=== PATIENT | female | born 1975 | race Caucasian/White ===

== ENCOUNTER 2018-08-04 09:41 | Emergency (ER) | payer OTHER ==
[2018-08-04] MEDS ORDERED: ONDANSETRON 4 MG/2 ML VIAL ONE (10:35)
[2018-08-04] MEDS ORDERED: MORPHINE 4 MG/ML SYR ONE (10:35)
[2018-08-04] MEDS ORDERED: NA CHLORIDE 0.9% 1,000 ML ONE (10:35)
[2018-08-04 10:48] LABS: Absolute Lymphocytes (CBC) 3.1 K/uL (0.7-4.9); Absolute Monocytes 0.8 K/uL (0.1-1.3); Absolute Neutrophil 6.6 K/uL (1.8-8.0); Basophils % 0.5 % (0-1.3); Eosinophils % 3.8 % (0-4.4); Hematocrit 40.8 % (36.0-45.0); MCH 29.8 pg (27.0-35.0); MCV 85.3 fL (80-100); Monocytes % 7.5 % (3.3-12.3); RBC Red Blood Cell Count 4.78 M/uL (3.86-4.86)
[2018-08-04 11:08] LABS: Albumin 4.2 g/dL (3.4-5.0); Bilirubin Direct 0.2 mg/dL (0-0.2); Bilirubin Total 0.7 mg/dL (0.2-1.0); Potassium 4.2 mmol/L (3.5-5.1); Protein, Total 7.6 g/dL (6.4-8.2)
[2018-08-04 11:13] LABS: Urine Blood NEGATIVE (NEG); Urine Glucose NEGATIVE (NEG); Urine Protein NEGATIVE (NEG); Urine pH 5.5 (5.0-7.0)
--- NOTE | 2018-08-04 11:43 | RAD REPORT ---
EXAM DESCRIPTION: CT - Abdomen Pelvis W Contrast - 08/04/2018 11:29 am CLINICAL HISTORY: Abdominal pain/left-sided abdominal pain with vomiting for several days COMPARISON: none. TECHNIQUE: Computed axial tomography of the abdomen pelvis was obtained. 100 cc Isovue-300 was admin istered intravenously. Oral contrast was not requested which limits evaluation of bowel. All CT scans are performed using dose optimization technique as appropriate and may include automated exposure control or mA/KV adjustment according to patient size. FINDINGS: The liver, spleen, pancreas, adrenal and right kidney appear unremarkable. A 1 millimeter nonobstructing left renal calculus There is no evidence of diverticulitis. The appendix is normal Hysterectomy has been performed. An adnexal mass is not noted. Tiny umbilical hernia is present. IMPRESSION: 1 millimeter nonobstructing left renal calculus
--- NOTE | 2018-08-04 12:16 | ER ---
Nurse's Notes [facility] Name: Coty Bartholomew Age: 43 yrs Sex: Female : 1975 Arrival Date: 08/04/2018 Time: 09:46 Bed 13 Private MD: None, None Diagnosis: Diarrhea, unspecified;Unspecified abdominal pain Presentation: 08/04 09:54 Note Called patient for triage, patient is in the restroom. aj1 10:00 Presenting complaint: Patient states: "On I started having pain on the left aj1 side and vomiting. I thought I was getting the flu because the next day I got fever. The fever broke Wednesday evening. I went back to work on Wednesday, still having the pain and vomiting. On the I went to urgent care, they gave me Zofran and told me if the pain got worse to come to the ER. I'm still throwing up with the Zofran. Now I've got stabbing pain on my left side" Reports LLQ abdominal pain. Transition of care: patient was not received from another setting of care. Onset of symptoms was July 2018. Risk Assessment: Do you want to hurt yourself or someone else? Patient reports no desire to harm self or others. Initial Sepsis Screen: Does the patient meet any 2 criteria? No. Patient's initial sepsis screen is negative. Does the patient have a suspected source of infection? Yes: Acute abdominal pain. Care prior to arrival: None. 10:00 Method Of Arrival: Ambulatory aj1 10:00 Acuity: ADAM 3 aj1 Triage Assessment: 10:07 General: Appears in no apparent distress. uncomfortable, Behavior is calm, cooperative, aj1 appropriate for age. Pain: Complains of pain in left lower quadrant Pain currently is 8 out of 10 on a pain scale. Neuro: Level of Consciousness is awake, alert, obeys commands. Cardiovascular: Patient's skin is warm and dry. Respiratory: Airway is patent Respiratory effort is even, unlabored, Respiratory pattern is regular, symmetrical. GI: Reports lower abdominal pain, nausea, vomiting. 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 - Social history:: Smoking status: Patient/guardian denies using tobacco. - Ebola Screening: : Patient denies travel to an Ebola-affected area in the 21 days before illness onset. Screenin:11 Abuse screen: Denies threats or abuse. Denies injuries from another. Nutritional hj screening: No deficits noted. Tuberculosis screening: No symptoms or risk factors identified. Fall Risk None identified. Assessment: 10:11 General: Appears in no apparent distress. uncomfortable, obese, Behavior is calm, hj cooperative, appropriate for age. Pain: Complains of pain in abdomen and left lower quadrant. Neuro: Level of Consciousness is awake, alert, obeys commands, Oriented to person, place, time, situation, Appropriate for age. Cardiovascular: Capillary refill < 3 seconds Patient's skin is warm and dry. Respiratory: Airway is patent Respiratory effort is even, unlabored, Respiratory pattern is regular, symmetrical. : No signs and/or symptoms were reported regarding the genitourinary system. EENT: No signs and/or symptoms were reported regarding the EENT system. Derm: Musculoskeletal: No signs and/or symptoms reported regarding the musculoskeletal system. 10:12 GI: Bowel sounds present X 4 quads. Abd is soft and non tender. hj 11:08 Reassessment: Patient and/or family updated on plan of care and expected duration. Pain hj level reassessed. Patient is alert, oriented x 3, equal unlabored respirations, skin warm/dry/pink. awaiting results and POC;. 11:16 Reassessment: wheeled to CT;. hj Vital Signs: 10:07 BP 139 / 92; Pulse 78; Resp 18; Temp 97.8; Pulse Ox 100% on R/A; Weight 95.71 kg (R); aj1 Height 5 ft. 1 in. (154.94 cm) (R); Pain 8/10; 11:08 BP 134 / 70; Pulse 71; Resp 18; Pulse Ox 100% on R/A; hj 13:02 BP 132 / 69; Pulse 70; Resp 18; Pulse Ox 100% on R/A; hj 10:07 Body Mass Index 39.87 (95.71 kg, 154.94 cm) aj1 ED Course: 09:46 Patient arrived in ED. sb2 09:46 None, None is Private Physician. sb2 10:04 Triage completed. aj1 10:07 Arm band placed on Patient placed in an exam room. aj1 10:09 Delroy Lambert, LOIDA is Primary Nurse. hj 10:09 Cayetano Hardwick NP is PHCP. pm1 10:09 Chirag Faye MD is Attending Physician. pm1 10:12 Patient has correct armband on for positive identification. Placed in gown. Bed in low hj position. Call light in reach. Side rails up X 1. 10:30 Initial lab(s) drawn, by me, sent to lab. Urine collected: clean catch specimen, clear. hj Inserted saline lock: 22 gauge in right antecubital area, using aseptic technique. Blood collected. 11:29 CT Abd/Pelvis - W/Contrast: IV contrast only In Process Unspecified. EDMS 12:14 Sidra Robertson MD is Referral Physician. pm1 12:20 Referral Physician role handed off by Sidra Robertson MD pm1 12:57 No provider procedures requiring assistance completed. IV discontinued, intact, hj bleeding controlled, No redness/swelling at site. Pressure dressing applied. Administered Medications: 10:25 Drug: NS 0.9% 1000 ml Route: IV; Rate: 1000 ml; Site: right antecubital; hj 12:59 Follow up: IV Status: Completed infusion hj 10:25 Drug: morphine 4 mg Route: IVP; Site: right antecubital; hj 10:57 Follow up: Response: No adverse reaction; Pain is decreased hj 10:25 Drug: Zofran 4 mg Route: IVP; Site: right antecubital; hj 10:58 Follow up: Response: No adverse reaction; Nausea is decreased hj 12:14 Drug: TORadol 30 mg Route: IVP; Site: right antecubital; hj 12:42 Follow up: Response: No adverse reaction hj 12:29 Drug: Phenergan 12.5 mg Route: IVP; Site: right antecubital; 12:54 Follow up: Response: No adverse reaction; Nausea is decreased Outcome: 12:16 Discharge ordered by . pm1 12:58 Discharged to home ambulatory. 12:58 Condition: stable 12:58 Discharge instructions given to patient, Instructed on discharge instructions, follow up and referral plans. medication usage, Demonstrated understanding of instructions, follow-up care, medications, Prescriptions given X 2. 13:00 Patient left the ED. Signatures: Dispatcher [employer] EDMS Priya Lei RN RN aj1 Delroy Lambert RN RN Cayetano Glaser, VENETIAN BLIND WORKER VENETIAN BLIND WORKER pm1 Leah Pride2
--- NOTE | 2018-08-04 12:16 | EDPHYS ---
Physician Documentation [facility] Name: Coty Bartholomew Age: 43 yrs Sex: Female : 1975 Arrival Date: 08/04/2018 Time: 09:46 Bed 13 Private MD: None, None ED Physician Chirag Faye HPI: 08/04 11:00 This 43 yrs old Female presents to ER via Ambulatory with complaints of pm1 Abdominal Pain. 11:00 The patient presents with abdominal pain in the left lower quadrant. Onset: The pm1 symptoms/episode began/occurred 1 week(s) ago. The symptoms do not radiate. Associated signs and symptoms: Pertinent positives: diarrhea, nausea, vomiting, Pertinent negatives: chest pain, shortness of breath. The symptoms are described as sharp. Modifying factors: The symptoms are alleviated by nothing, the symptoms are aggravated by nothing. The patient has not experienced similar symptoms in the past. The patient has been recently seen at an urgent care, for similar complaints, was given a prescription for an antiemetic. 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 - Social history:: Smoking status: Patient/guardian denies using tobacco. - Ebola Screening: : Patient denies travel to an Ebola-affected area in the 21 days before illness onset. ROS: 11:00 Constitutional: Negative for fever, chills, and weight loss, Eyes: Negative for injury, pm1 pain, redness, and discharge, ENT: Negative for injury, pain, and discharge, Neck: Negative for injury, pain, and swelling, Cardiovascular: Negative for chest pain, palpitations, and edema, Respiratory: Negative for shortness of breath, cough, wheezing, and pleuritic chest pain. 11:00 Back: Negative for injury and pain, : Negative for injury, bleeding, discharge, and swelling, MS/Extremity: Negative for injury and deformity, Skin: Negative for injury, rash, and discoloration, Neuro: Negative for headache, weakness, numbness, tingling, and seizure. 11:00 Abdomen/GI: Positive for abdominal pain, nausea, vomiting, diarrhea, of the left lower quadrant. Exam: 11:00 Constitutional: This is a well developed, well nourished patient who is awake, alert, pm1 and in no acute distress. Head/Face: Normocephalic, atraumatic. Eyes: Pupils equal round and reactive to light, extra-ocular motions intact. Lids and lashes normal. Conjunctiva and sclera are non-icteric and not injected. Cornea within normal limits. Periorbital areas with no swelling, redness, or edema. ENT: Nares patent. No nasal discharge, no septal abnormalities noted. Tympanic membranes are normal and external auditory canals are clear. Oropharynx with no redness, swelling, or masses, exudates, or evidence of obstruction, uvula midline. Mucous membranes moist. Neck: Trachea midline, no thyromegaly or masses palpated, and no cervical lymphadenopathy. Supple, full range of motion without nuchal rigidity, or vertebral point tenderness. No Meningismus. Chest/axilla: Normal chest wall appearance and motion. Nontender with no deformity. No lesions are appreciated. Cardiovascular: Regular rate and rhythm with a normal S1 and S2. No gallops, murmurs, or rubs. Normal PMI, no JVD. No pulse deficits. Respiratory: Lungs have equal breath sounds bilaterally, clear to auscultation and percussion. No rales, rhonchi or wheezes noted. No increased work of breathing, no retractions or nasal flaring. Abdomen/GI: Soft, non-tender, with normal bowel sounds. No distension or tympany. No guarding or rebound. No evidence of tenderness throughout. Back: No spinal tenderness. No costovertebral tenderness. Full range of motion. Skin: Warm, dry with normal turgor. Normal color with no rashes, no lesions, and no evidence of cellulitis. MS/ Extremity: Pulses equal, no cyanosis. Neurovascular intact. Full, normal range of motion. 11:00 Neuro: Orientation: is normal, Motor: is normal, Sensation: is normal, no obvious gross deficits, Gait: is steady, at a normal pace, without difficulty. Vital Signs: 10:07 BP 139 / 92; Pulse 78; Resp 18; Temp 97.8; Pulse Ox 100% on R/A; Weight 95.71 kg (R); aj1 Height 5 ft. 1 in. (154.94 cm) (R); Pain 8/10; 11:08 BP 134 / 70; Pulse 71; Resp 18; Pulse Ox 100% on R/A; hj 13:02 BP 132 / 69; Pulse 70; Resp 18; Pulse Ox 100% on R/A; hj 10:07 Body Mass Index 39.87 (95.71 kg, 154.94 cm) aj1 MDM: 10:14 Patient medically screened. pm1 12:12 Data reviewed: vital signs. Data interpreted: Pulse oximetry: on room air is 100 %. pm1 Interpretation: normal. Counseling: I had a detailed discussion with the patient and/or guardian regarding: the historical points, exam findings, and any diagnostic results supporting the discharge/admit diagnosis, lab results, radiology results, the need for outpatient follow up, to return to the emergency department if symptoms worsen or persist or if there are any questions or concerns that arise at home. 08/04 10:15 Order name: Basic Metabolic Panel; Complete Time: 11:23 pm1 08/04 10:15 Order name: CBC with Diff; Complete Time: 10:52 pm1 08/04 10:15 Order name: Creatinine for Radiology; Complete Time: 11:23 pm1 08/04 10:15 Order name: Hepatic Function; Complete Time: 11:23 pm1 08/04 10:15 Order name: Lipase; Complete Time: 11:23 pm1 08/04 11:02 Order name: Urine Dipstick--Ancillary (enter results); Complete Time: 11:23 eb 08/04 10:15 Order name: IV Saline Lock; Complete Time: 10:39 pm1 08/04 10:20 Order name: CT Abd/Pelvis - W/Contrast: IV contrast only; Complete Time: 12:09 pm1 08/04 11:02 Order name: Urine --Ancillary (enter results); Complete Time: 11:23 eb 08/04 10:15 Order name: Labs collected and sent; Complete Time: 10:40 pm1 08/04 10:15 Order name: Urine Test (obtain specimen); Complete Time: 10:57 pm1 11 10:15 Order name: Urine Dipstick-Ancillary (obtain specimen); Complete Time: 10:57 pm1 Administered Medications: 10:25 Drug: NS 0.9% 1000 ml Route: IV; Rate: 1000 ml; Site: right antecubital; hj 12:59 Follow up: IV Status: Completed infusion hj 10:25 Drug: morphine 4 mg Route: IVP; Site: right antecubital; hj 10:57 Follow up: Response: No adverse reaction; Pain is decreased hj 10:25 Drug: Zofran 4 mg Route: IVP; Site: right antecubital; hj 10:58 Follow up: Response: No adverse reaction; Nausea is decreased hj 12:14 Drug: TORadol 30 mg Route: IVP; Site: right antecubital; hj 12:42 Follow up: Response: No adverse reaction hj 12:29 Drug: Phenergan 12.5 mg Route: IVP; Site: right antecubital; hj 12:54 Follow up: Response: No adverse reaction; Nausea is decreased hj Disposition: 16:24 Co-signature as Attending Physician, Chirag Faye MD I agree with the assessment and kdr plan of care. Disposition: 08/04/18 12:16 Discharged to Home. Impression: Diarrhea, unspecified, Unspecified abdominal pain. - Condition is Stable. - Discharge Instructions: Abdominal Pain, Adult, Food Choices to Help Relieve Diarrhea, Adult, Diarrhea, Adult. - Prescriptions for Bentyl 20 mg Oral Tablet - take 1 tablet by ORAL route every 6 hours As needed; 20 tablet. promethazine 25 mg Oral Tablet - take 1 tablet by ORAL route every 6 hours As needed; 20 tablet. - Medication Reconciliation Form, Thank You Letter, Antibiotic Education form. - Follow up: Emergency Department; When: As needed; Reason: Worsening of condition. Follow up: Private Physician; When: 2 - 3 days; Reason: Recheck today's complaints, Continuance of care, Re-evaluation by your physician. Follow up: Sidra Robertson MD; When: 2 - 3 days; Reason: Recheck today's complaints, Continuance of care, Re-evaluation by your physician. - Problem is new. - Symptoms have improved. Signatures: Dispatcher [employer] EDMS Priya Lei RN RN aj1 Chirag Faye MD MD kdr Joaquin, Henry, RN RN hj Cayetano Hardwick, ANN SURFACE BOSS pm1 Corrections: (The following items were deleted from the chart) 12:18 12:16 08/04/2018 12:16 Discharged to Home. Impression: Left ureteral stone. Condition pm1 is Stable. Forms are Medication Reconciliation Form, Thank You Letter, Antibiotic Education, Prescription Opioid Use. Follow up: Emergency Department; When: As needed; Reason: Worsening of condition. Follow up: Private Physician; When: 2 - 3 days; Reason: Recheck today's complaints, Continuance of care, Re-evaluation by your physician. Follow up: Sidra Robertson; When: 2 - 3 days; Reason: Recheck today's complaints, Continuance of care, Re-evaluation by your physician. Problem is new. Symptoms have improved. pm1 12:20 12:18 08/04/2018 12:16 Discharged to Home. Impression: Diarrhea, unspecified; pm1 Unspecified abdominal pain. Condition is Stable. Discharge Instructions: Food Choices to Help Relieve Diarrhea, Adult, Diarrhea, Adult, Renal Colic. Forms are Medication Reconciliation Form, Thank You Letter, Antibiotic Education, Prescription Opioid Use. Follow up: Emergency Department; When: As needed; Reason: Worsening of condition. Follow up: Private Physician; When: 2 - 3 days; Reason: Recheck today's complaints, Continuance of care, Re-evaluation by your physician. Follow up: Sidra Robertson; When: 2 - 3 days; Reason: Recheck today's complaints, Continuance of care, Re-evaluation by your physician. Problem is new. Symptoms have improved. pm1 13:00 12:20 08/04/2018 12:16 Discharged to Home. Impression: Diarrhea, unspecified; hj Unspecified abdominal pain. Condition is Stable. Discharge Instructions: Food Choices to Help Relieve Diarrhea, Adult, Diarrhea, Adult, Abdominal Pain, Adult. Prescriptions for Bentyl 20 mg Oral Tablet - take 1 tablet by ORAL route every 6 hours As needed; 20 tablet, Zofran 4 mg Oral Tablet - take 1 tablet by ORAL route every 12 hours As needed; 20 tablet. and Forms are Medication Reconciliation Form, Thank You Letter, Antibiotic Education. Follow up: Emergency Department; When: As needed; Reason: Worsening of condition. Follow up: Private Physician; When: 2 - 3 days; Reason: Recheck today's complaints, Continuance of care, Re-evaluation by your physician. Problem is new. Symptoms have improved. pm1
[2018-08-04] MEDS ORDERED: KETOROLAC 30 MG/ML INJ ONE (12:22)
[2018-08-04] MEDS ORDERED: PROMETHAZINE 25 MG/ML VIAL ONE (12:53)
== END 2018-08-04 13:00 | disposition home or self-care (01) ==
LOC: ER 09:41
DX: R19.7 Diarrhea, unspecified (principal); I10 Essential (primary) hypertension; E11.9 Type 2 diabetes mellitus without complications; E78.5 Hyperlipidemia, unspecified; Z88.8 Allergy status to other drugs, medicaments and biological substances
CPT/HCPCS: 36415; 74177; 80048; 80076; 81003; 81025; 83690; 85025; 96361; 96374; 96375; 99284; J2405; J2550; J7030; Q9967

== ENCOUNTER 2018-08-11 09:30 | Emergency (ER) | payer OTHER ==
[2018-08-11] MEDS ORDERED: ONDANSETRON 4 MG/2 ML VIAL ONE (10:44)
[2018-08-11] MEDS ORDERED: MORPHINE 4 MG/ML SYR ONE (10:44)
--- NOTE | 2018-08-11 10:57 | RAD REPORT ---
EXAM DESCRIPTION: CT - Abdomen Pelvis W Contrast - 08/11/2018 10:43 am CLINICAL HISTORY: Abdominal pain/left lower quadrant pain for 2 weeks. Vomiting. COMPARISON: August 04, 2018 TECHNIQUE: Computed axial tomography of the abdomen pelvis was obtained. 100 cc Isovue-300 was admin istered intravenously. Oral contrast was not requested which limits evaluation of bowel. All CT scans are performed using dose optimization technique as appropriate and may include automated exposure control or mA/KV adjustment according to patient size. FINDINGS: Mild fatty infiltration liver. Spleen, pancreas, adrenal and right kidney appear unremarkable. 1 millimeter nonobstructing left barbi l calculus There is no evidence of diverticulitis. The appendix is normal. Hysterectomy has been performed Tiny umbilical hernia IMPRESSION: No acute abnormality is displayed.
[2018-08-11 11:06] LABS: Absolute Lymphocytes (CBC) 2.1 K/uL (0.7-4.9); Absolute Monocytes 0.6 K/uL (0.1-1.3); Absolute Neutrophil 5.8 K/uL (1.8-8.0); Basophils % 0.4 % (0-1.3); Eosinophils % 3.7 % (0-4.4); Hematocrit 34.7 % (36.0-45.0); Lymphocytes % 23.8 % (15.3-44.8); MCH 30.1 pg (27.0-35.0); MPV 7.6 fL (7.6-11.3); Monocytes % 6.7 % (3.3-12.3); RBC Red Blood Cell Count 4.04 M/uL (3.86-4.86)
[2018-08-11 11:23] LABS: Albumin 3.6 g/dL (3.4-5.0); Bilirubin Direct 0.1 mg/dL (0-0.2); Bilirubin Total 0.4 mg/dL (0.2-1.0); Potassium 4.2 mmol/L (3.5-5.1); Protein, Total 6.4 g/dL (6.4-8.2)
--- NOTE | 2018-08-11 11:52 | EDPHYS ---
Physician Documentation [facility] Name: Coty Bartholomew Age: 43 yrs Sex: Female : 1975 Arrival Date: 08/11/2018 Time: 09:39 Bed 8 Private MD: Sasha Herman K ED Physician Elias Farah HPI: 08/11 10:34 This 43 yrs old Female presents to ER via Ambulatory with complaints of jmm Black/Tarry Stools. 10:34 The patient presents with abdominal pain in the left upper quadrant, in the left lower jmm quadrant. Onset: The symptoms/episode began/occurred gradually, 2 week(s) ago. Associated signs and symptoms: Pertinent positives:. This is a 43 year old female with a history of DM, that presents to the ED with left sided abdominal pain beginning 2 weeks ago. Patient states she was diagnosed with diverticulitis 2 weeks ago and is currently taking cipro, cefuroxime, and flagyl with dark tarry stools. . COUNSELING DIRECTOR: 10:22 LMP N/A - Hysterectomy iw Historical: - Allergies: 10:22 Advair Diskus; iw - Home Meds: 10:22 Atenolol Oral [Active]; Cyclobenzaprine Oral [Active]; Enalapril Oral [Active]; iw Metformin Oral [Active]; Naproxen Oral [Active]; Prozac Oral [Active]; Ranitidine Oral [Active]; - PMHx: 10:22 Diabetes - NIDDM; Diverticulitis; Endometrosis; Hyperlipidemia; Hypertension; iw - PSHx: 10:22 Hysterectomy; iw - Immunization history:: Adult Immunizations not up to date. - Social history:: Smoking status: Patient/guardian denies using tobacco. - Ebola Screening: : Patient negative for fever greater than or equal to 101.5 degrees Fahrenheit, and additional compatible Ebola Virus Disease symptoms Patient denies exposure to infectious person Patient denies travel to an Ebola-affected area in the 21 days before illness onset No symptoms or risks identified at this time. ROS: 10:34 Constitutional: Negative for fever, chills, and weight loss, Cardiovascular: Negative jmm for chest pain, palpitations, and edema, Respiratory: Negative for shortness of breath, cough, wheezing, and pleuritic chest pain. 10:34 Back: Negative for injury and pain, MS/Extremity: Negative for injury and deformity, Skin: Negative for injury, rash, and discoloration, Neuro: Negative for headache, weakness, numbness, tingling, and seizure, Psych: Negative for depression, anxiety, suicide ideation, homicidal ideation, and hallucinations. 10:34 Abdomen/GI: Positive for abdominal pain. 10:34 All other systems are negative. Exam: 10:34 Head/Face: atraumatic. Eyes: EOMI, no conjunctival erythema appreciated Chest/axilla: jmm Normal chest wall appearance and motion. Cardiovascular: Regular rate and rhythm. No edema appreciated Respiratory: Normal respirations, no respiratory distress appreciated 10:34 Back: Normal ROM Skin: General appearance color normal MS/ Extremity: Moves all extremities, no obvious deformities appreciated, no edema noted to the lower extremities Neuro: Awake and alert, normal gait 10:34 Constitutional: The patient appears alert, awake. 10:34 Constitutional: The patient appears uncomfortable. 10:34 Abdomen/GI: Inspection: abdomen appears normal, Bowel sounds: normal, Palpation: soft, moderate abdominal tenderness, in the left upper quadrant and left lower quadrant. Vital Signs: 10:22 BP 152 / 80; Pulse 94; Resp 16; Temp 98.2; Pulse Ox 100% on R/A; Weight 95.25 kg; iw Height 5 ft. 1 in. (154.94 cm); Pain 8/10; 11:00 BP 141 / 84; Pulse 92; Resp 16 S; Pulse Ox 100% on R/A; aa5 11:15 BP 110 / 58; Pulse 90; Resp 16 S; Pulse Ox 100% on R/A; Pain 6/10; aa5 12:30 BP 109 / 66; Pulse 89; Resp 16 S; Pulse Ox 100% on R/A; jl7 10:22 Body Mass Index 39.68 (95.25 kg, 154.94 cm) iw MDM: 10:18 Patient medically screened. [facility] 10:34 Data reviewed: vital signs, nurses notes. [facility] 11:49 Data reviewed: lab test result(s), radiologic studies, CT scan. Counseling: I had a [facility] detailed discussion with the patient and/or guardian regarding: the historical points, exam findings, and any diagnostic results supporting the discharge/admit diagnosis, lab results, radiology results, the need for outpatient follow up, to return to the emergency department if symptoms worsen or persist or if there are any questions or concerns that arise at home. ED course: CT imaging negative for acute findings. I do not suspect an acute intraabdominal process. Patient encouraged to continue abx and PPI. Patient advised to follow up with her GI and otherwise given strict return precautions. Patient understood and agrees with the plan of care. . 08/11 10:24 Order name: Basic Metabolic Panel; Complete Time: 11:40 [facility] 08/11 10:24 Order name: CBC with Diff; Complete Time: 11:17 [facility] 08/11 11:17 Interpretation: HGB 12.2. [facility] 08/11 10:24 Order name: Creatinine for Radiology; Complete Time: 11:40 [facility] 08/11 10:24 Order name: Hepatic Function; Complete Time: :40 [facility] 08/11 10:24 Order name: Lipase; Complete Time: 11:40 [facility] 08/11 10:24 Order name: Type And Screen; Complete Time: 11:51 [facility] 08/11 10:24 Order name: IV Saline Lock; Complete Time: 10:59 [facility] 08/11 10:24 Order name: Labs collected and sent; Complete Time: 10:59 [facility] 08/11 10:24 Order name: CT Abd/Pelvis - W/Contrast; Complete Time: 11:17 [facility] 08/11 11:58 Order name: ABO/RH no charge; Complete Time: 11:59 EDMS Administered Medications: 11:00 Drug: morphine 4 mg Route: IVP; Site: right antecubital; aa5 11:05 Follow up: Response: No adverse reaction aa5 11:00 Drug: Zofran 4 mg Route: IVP; Site: right antecubital; aa5 11:05 Follow up: Response: No adverse reaction aa5 11:58 Drug: fentaNYL (PF) 50 mcg Route: IVP; Site: right antecubital; aa5 12:04 Follow up: Response: No adverse reaction aa5 Disposition: 17:24 Co-signature as Attending Physician, Elias Farah MD. rn Disposition: 08/11/18 11:51 Discharged to Home. Impression: Other abdominal pain. - Condition is Stable. - Discharge Instructions: Abdominal Pain, Adult. - Medication Reconciliation Form, Thank You Letter, Antibiotic Education, Prescription Opioid Use form. - Follow up: Private Physician; When: 1 - 2 days; Reason: Recheck today's complaints, Continuance of care, Re-evaluation by your physician. Signatures: Dispatcher [employer] Karthik Cesar PA PA jmm Williams, Irene, RN Elias Tony MD MD rn Calderon, Audri, RN RN aa5 Sydney Hinton RN RN jl7 Corrections: (The following items were deleted from the chart) 12:36 11:51 08/11/2018 11:51 Discharged to Home. Impression: Other abdominal pain. Condition jl7 is Stable. Forms are Medication Reconciliation Form, Thank You Letter, Antibiotic Education, Prescription Opioid Use. Follow up: Private Physician; When: 1 - 2 days; Reason: Recheck today's complaints, Continuance of care, Re-evaluation by your physician. keya
--- NOTE | 2018-08-11 11:52 | ER ---
Nurse's Notes [facility] Name: Coty Bartholomew Age: 43 yrs Sex: Female : 1975 Arrival Date: 08/11/2018 Time: 09:39 Bed 8 Private MD: Sasha Herman K Diagnosis: Other abdominal pain Presentation: 08/11 10:16 Presenting complaint: Patient states: LLQ pain X 2 weeks, was sen here on for same iw symptoms and vomiting, pt was placed on antibiotics and hsa had diarrhea, this morning had 2 episodes of "black tarry stool" this morning. Transition of care: patient was not received from another setting of care. Onset of symptoms was August 11, 2018. Risk Assessment: Do you want to hurt yourself or someone else? Patient reports no desire to harm self or others. Initial Sepsis Screen: Does the patient meet any 2 criteria? No. Patient's initial sepsis screen is negative. Does the patient have a suspected source of infection? No. Patient's initial sepsis screen is negative. Care prior to arrival: None. 10:16 Method Of Arrival: Ambulatory iw 10:16 Acuity: ADAM 3 iw CLINICAL SAFETY SPECIALIST: 10:22 LMP N/A - Hysterectomy iw Historical: - Allergies: 10:22 Advair Diskus; iw - Home Meds: 10:22 Atenolol Oral [Active]; Cyclobenzaprine Oral [Active]; Enalapril Oral [Active]; iw Metformin Oral [Active]; Naproxen Oral [Active]; Prozac Oral [Active]; Ranitidine Oral [Active]; - PMHx: 10:22 Diabetes - NIDDM; Diverticulitis; Endometrosis; Hyperlipidemia; Hypertension; iw - PSHx: 10:22 Hysterectomy; iw - Immunization history:: Adult Immunizations not up to date. - Social history:: Smoking status: Patient/guardian denies using tobacco. - Ebola Screening: : Patient negative for fever greater than or equal to 101.5 degrees Fahrenheit, and additional compatible Ebola Virus Disease symptoms Patient denies exposure to infectious person Patient denies travel to an Ebola-affected area in the 21 days before illness onset No symptoms or risks identified at this time. Screenin:30 Abuse screen: Denies threats or abuse. Nutritional screening: No deficits noted. aa5 Tuberculosis screening: No symptoms or risk factors identified. Fall Risk None identified. Assessment: 10:30 General: Appears comfortable, Behavior is calm, cooperative. Pain: Complains of pain in aa5 left lower quadrant Pain radiates to lumbar area, left low back and right low back Pain currently is 8 out of 10 on a pain scale. Quality of pain is described as sharp, shooting, Pain began 2 weeks ago Is continuous. Neuro: Level of Consciousness is awake, alert, obeys commands, Oriented to person, place, time, situation. Cardiovascular: Heart tones S1 S2 present Rhythm is regular. Respiratory: Airway is patent Respiratory effort is even, unlabored, Respiratory pattern is regular, symmetrical, Breath sounds are clear bilaterally. GI: Abdomen is obese, Bowel sounds present X 4 quads. Abd is soft and non tender X 4 quads. Reports diarrhea, nausea, 2 "black tarry" stools this morning Patient currently denies vomiting. : No signs and/or symptoms were reported regarding the genitourinary system. EENT: No signs and/or symptoms were reported regarding the EENT system. Derm: Skin is pink, warm \\T\\ dry. Musculoskeletal: Range of motion: intact in all extremities. 11:15 Reassessment: Patient and/or family updated on plan of care and expected duration. Pain aa5 level reassessed. Patient is alert, oriented x 3, equal unlabored respirations, skin warm/dry/pink. Patient states feeling better. Pain: Pain currently is 6 out of 10 on a pain scale. 12:10 Reassessment: Patient is alert, oriented x 3, equal unlabored respirations, skin aa5 warm/dry/pink. Patient states feeling better. Vital Signs: 10:22 BP 152 / 80; Pulse 94; Resp 16; Temp 98.2; Pulse Ox 100% on R/A; Weight 95.25 kg; iw Height 5 ft. 1 in. (154.94 cm); Pain 8/10; 11:00 BP 141 / 84; Pulse 92; Resp 16 S; Pulse Ox 100% on R/A; aa5 11:15 BP 110 / 58; Pulse 90; Resp 16 S; Pulse Ox 100% on R/A; Pain 6/10; aa5 12:30 BP 109 / 66; Pulse 89; Resp 16 S; Pulse Ox 100% on R/A; jl7 10:22 Body Mass Index 39.68 (95.25 kg, 154.94 cm) ED Course: 09:39 Patient arrived in ED. mr 09:39 Sasha Herman MD is Private Physician. mr 10:07 Karthik Hendricks PA [facility] 10:07 Elias Farah MD is Attending Physician. [facility] 10:12 Nubia Cochran, RN is Primary Nurse. aa5 10:20 Triage completed. iw 10:23 Arm band placed on. iw 10:30 Patient has correct armband on for positive identification. Placed in gown. Bed in low aa5 position. Call light in reach. Side rails up X2. 10:43 CT Abd/Pelvis - W/Contrast In Process Unspecified. EDMS 10:43 CT completed. Patient tolerated procedure well. Patient moved to CT via wheelchair. Patient moved back from CT. 10:45 Inserted saline lock: 22 gauge in right antecubital area, using aseptic technique. per 3 video tape duplicator. 10:56 Initial lab(s) drawn, by co, sent to lab. T\\T\\S collected, blood band applied to patient. 3 12:36 No provider procedures requiring assistance completed. IV discontinued, intact, jl7 bleeding controlled, No redness/swelling at site. Pressure dressing applied. Administered Medications: 11:00 Drug: morphine 4 mg Route: IVP; Site: right antecubital; aa5 11:05 Follow up: Response: No adverse reaction aa5 11:00 Drug: Zofran 4 mg Route: IVP; Site: right antecubital; aa5 11:05 Follow up: Response: No adverse reaction aa5 11:58 Drug: fentaNYL (PF) 50 mcg Route: IVP; Site: right antecubital; aa5 12:04 Follow up: Response: No adverse reaction aa5 Outcome: 11:51 Discharge ordered by MD. [facility] 12:35 Discharged to home ambulatory. jl7 12:35 Condition: stable 12:35 Discharge instructions given to patient, Instructed on discharge instructions, follow up and referral plans. Demonstrated understanding of instructions, follow-up care. 12:36 Patient left the ED. jl7 Signatures: Dispatcher [employer] EDMS Karthik Hendricks PA PA jmm Rivera, Mary mr HowardPrema Mercy Gusman RN RN iw Nubia Cochran RN RN aa5 Sydney Hinton RN RN jl7 [facility] Corrections: (The following items were deleted from the chart) 10:59 10:45 Inserted saline lock: 22 gauge in right antecubital area, using aseptic dh3 technique. per Assessment Expert 3
[2018-08-11] MEDS ORDERED: FENTANYL CITR 100 MCG/2 ML ONE (12:12)
== END 2018-08-11 12:36 | disposition home or self-care (01) ==
LOC: ER 09:30
DX: R10.9 Unspecified abdominal pain (principal); I10 Essential (primary) hypertension; E78.5 Hyperlipidemia, unspecified; E11.9 Type 2 diabetes mellitus without complications; Z88.8 Allergy status to other drugs, medicaments and biological substances
CPT/HCPCS: 36415; 74177; 80048; 80076; 83690; 85025; 86850; 86900; 86901; 96374; 96375; 99284; J2405; J3010; Q9967

== ENCOUNTER → 2018-09-09 | Day surgery (SDC) | payer OTHER ==
[2018-09-08 13:53] LABS: Absolute Lymphocytes (CBC) 2.4 K/uL (0.7-4.9); Absolute Monocytes 0.6 K/uL (0.1-1.3); Absolute Neutrophil 4.4 K/uL (1.8-8.0); Basophils % 0.9 % (0-1.3); Eosinophils % 4.6 % (0-4.4); Hematocrit 40.7 % (36.0-45.0); Lymphocytes % 30.5 % (15.3-44.8); MPV 7.8 fL (7.6-11.3); Monocytes % 8.1 % (3.3-12.3)
[2018-09-08 14:03] LABS: Potassium 5.2 mmol/L (3.5-5.1)
--- NOTE | 2018-09-08 14:03 | RAD REPORT ---
EXAM DESCRIPTION: RAD - Chest Pa And Lat (2 Views) - 09/08/2018 1:56 pm CLINICAL HISTORY: PRE SURGERY Chest pain. COMPARISON: No comparisons FINDINGS: The lungs are clear. The heart is normal in size. No displaced fractures. IMPRESSION: No acute or concerning finding suspected.
[~2018-09-09] MED LIST: CEFOXITIN/SWI 1gm 1 GM/10 ML SYR ONE; DEXAMETHASONE 10 MG/ML VIAL ONE; FENTANYL CITR 100 MCG/2 ML ONE; GLYCOPYRROLATE 0.2 MG/ML SYR ONE; HYDROCODONE/APAP 7.5/325 MG TAB ONE; HYDROCODONE/APAP 7.5/325 MG TAB PO ONE; HYDROMORPHONE HCL 1 MG/ML INJ ONE; LIDOCAINE 2% MPF 5 ML VIAL ONE; MIDAZOLAM HCL 2 MG/2 ML INJ ONE; NA CHLORIDE 0.9% 1,000 ML ONE; NEOSTIGMINE 1 MG/ML -5 ML SYRINGE ONE; ONDANSETRON 4 MG/2 ML VIAL ONE; PROPOFOL 200 MG/20 ML VIAL IV ONE; ROCURONIUM 50 MG/5 ML VIAL IV ONE
--- NOTE | 2018-09-09 09:26 | EKG ---
Test Date: 2018-09-08 Test Time: 13:38:41 [place] Supervisor: TORIBIO MEASUREMENT RESULTS: Intervals: Rate: 60 SC: 142 QRSD: 82 QT: 408 QTc: 408 [place]: P: 26 SC: 142 QRS: 2 T: 28 INTERPRETIVE STATEMENTS: Normal sinus rhythm Cannot rule out Anterior infarct, age undetermined Abnormal ECG No previous ECG available for comparison Electronically Signed On 09-09-18 09:25:51 AUTOMOTIVE PARTS SPECIALIST by Dennis Keene
[2018-09-09] MEDS: MORPHINE 4 MG/ML SYR ONE ×6 (10:38→11:05)
--- NOTE | 2018-09-09 22:39 | OP ---
Date of Procedure: 09/09/2018 Surgeon: Blair Valverde MD Photographic Process Worker: Jose Ramon Grier Preoperative Diagnosis: Chronic abdominal pain. Postoperative Diagnosis: Chronic abdominal pain with extensive adhesions. Procedures Performed: Diagnostic laparoscopy, laparoscopic lysis of adhesions, extensive. Estimated Blood Loss: Minimal. Specimen: None. Findings: As above. Anesthesia: General. Complications: None. Disposition: The patient tolerated the procedure in stable condition and taken to recovery in good g eneral condition. Procedure In Detail: The patient was brought to the OR and placed in supine position. General anest hesia was begun. The patient was prepped and draped in usual sterile fashion. Marcaine 0.5% was inf iltrated locally. A 15-blade was used to make a 1 cm supraumbilical midline incision. Subcutaneous tissue was divided. Fascia was identified and divided. A #1 Vicryl stay suture was placed. Periton eal cavity was entered with sharp and blunt dissection. A 12-mm trocar was placed into the peritonea l cavity under direct vision. Pneumoperitoneum was established and laparoscopy revealed extensive ad hesions in the left lower abdomen and the lower midline and towards the pubis. A 5-mm trocar was joie ene in the right lower quadrant and then ligature was used to divide all of the scarred tissue. It t ook approximately half an hour to lyse all of the adhesions. Care was taken to avoid injuries to any of the intestines. Dissection was proceeded all the way down to just above the pubis. Bowels were released. There was no evidence of bleeding or bowel injury appreciated. After the lysis of adhesio ns, all trocars were removed under direct vision. Stay sutures were tied to each other to reapproxim ate the fascial defect. Please note, there was no other evidence of disease in the peritoneal cavity and everything was examined and then the wound was irrigated. Bleeding was controlled with cautery. A 3-0 chromic was used to reapproximate the subcutaneous tissue and close the skin. Sterile dressi ng was applied. The patient was awakened and taken to recovery in good general condition. Discharge Note: The patient will go to day surgery and home when stable. Disposition: Home. Condition: Stable. Discharge Instructions: Resume home meds and diet. Activity as tolerated. No heavy lifting. Remov e outer dressing in 2 days. Shower. Keep wound clean and dry. Keep Steri-Strips on at all times. Tylenol No. 3, 1 tablet p.o. q.4 p.r.n. pain. Follow up in my office in a week. Call for julian GRAY Voice ID: [id number] Report ID: [id number]
== END | disposition home or self-care (01) ==
LOC: OR 07:52
PROVIDERS: ATTEND Surgery
PROC: 0DNW4ZZ Release Peritoneum, Percutaneous Endoscopic Approach (ICD-10-PCS; principal; 2018-09-09 09:00)
DX: R10.9 Unspecified abdominal pain (principal); K66.0 Peritoneal adhesions (postprocedural) (postinfection); I10 Essential (primary) hypertension; E11.9 Type 2 diabetes mellitus without complications; K21.9 Gastro-esophageal reflux disease without esophagitis
CPT/HCPCS: 36415; 71046; 80048; 82962; 85025; 93005; J1100; J1170; J2250; J2405; J2704; J2710; J3010; J7030

== ENCOUNTER 2019-03-01 09:11 | Observation (INO) | payer OTHER ==
[2019-03-01 08:53] LABS: Absolute Monocytes 0.5 K/uL (0.1-1.3); Absolute Neutrophil 4.8 K/uL (1.8-8.0); Basophils % 0.7 % (0-1.3); Eosinophils % 1.8 % (0-4.4); Hematocrit 41.6 % (36.0-45.0); Lymphocytes % 35.3 % (15.3-44.8); MPV 7.6 fL (7.6-11.3); Monocytes % 6.1 % (3.3-12.3); RBC Red Blood Cell Count 4.87 M/uL (3.86-4.86)
--- OUTSIDE RECORDS SUMMARY | 2019-03-01 09:15 | XMS REPORT ---
:1975 [facility] Address [address] [place] [address] Dr. Walden [address] [place] [id number] Care Team Providers Name Role Phone Unavailable Unavailable Unavailable Problems This patient has no known problems. Allergies, Adverse Reactions, Alerts This patient has no known allergies or adverse reactions. Medications This patient has no known medications.
[2019-03-01 09:21] LABS: Potassium 4.2 mmol/L (3.5-5.1)
[2019-03-01] MEDS ORDERED: NA CHLORIDE 0.9% 1,000 ML ONE (09:53)
--- NOTE | 2019-03-01 10:07 | RAD REPORT ---
EXAM DESCRIPTION: RAD - Chest Pa And Lat (2 Views) - 03/01/2019 9:00 am CLINICAL HISTORY: PRE-OP Chest pain. COMPARISON: Chest Pa And Lat (2 Views) dated 09/08/2018 FINDINGS: The lungs are clear. The heart is normal in size. No displaced fractures. IMPRESSION: No acute or concerning finding suspected.
[2019-03-01] MEDS ORDERED: CEFAZOLIN/SWI 1gm 1 GM/10 ML SYR ONE (11:07)
[2019-03-01] MEDS ORDERED: BUPIVACAINE 0.5% PF 10 ML VIAL ONE ×2 (11:22→12:13)
--- NOTE | 2019-03-01 11:23 | EKG ---
Test Date: 2019-03-01 Test Time: 08:44:56 Polisher Aluminum: TORIBIO MEASUREMENT RESULTS: Intervals: Rate: 73 NV: 130 QRSD: 88 QT: 386 QTc: 425 [place]: P: 39 NV: 130 QRS: 38 T: 43 INTERPRETIVE STATEMENTS: Normal sinus rhythm Normal ECG Compared to ECG 09/08/2018 13:38:41 Myocardial infarct finding no longer present Electronically Signed On 03-01-19 11:22:42 CDT by Dennis Keene
[2019-03-01] MEDS ORDERED: MIDAZOLAM HCL 2 MG/2 ML INJ ONE (11:40)
[2019-03-01] MEDS ORDERED: FENTANYL CITR 100 MCG/2 ML ONE ×2 (11:40→12:27)
[2019-03-01] MEDS ORDERED: DEXAMETHASONE 10 MG/ML VIAL ONE (11:40)
[2019-03-01] MEDS ORDERED: PROPOFOL 200 MG/20 ML VIAL IV ONE (11:40)
[2019-03-01] MEDS ORDERED: LIDOCAINE 2% MPF 5 ML VIAL ONE (11:41)
[2019-03-01] MEDS ORDERED: ROCURONIUM 50 MG/5 ML VIAL IV ONE (11:41)
[2019-03-01] MEDS ORDERED: SODIUM CHLORIDE 0.9% 10ML INJ IV PRN (12:54)
[2019-03-01] MEDS ORDERED: ONDANSETRON 4 MG/2 ML VIAL IV PRN (12:54)
--- NOTE | 2019-03-01 12:54 | P.BOP ---
Preoperative diagnosis: abdominal pain, incarcerated umbilical hernia Postoperative diagnosis: same plus extensive lyisis of adhesions, appendicitis Primary procedure: 1. Diagnostic laposcopic, 2. Laparoscopic appendectomy Secondary procedure: 3. open repair of incisional incarcerated umbilical hernia Other procedure(s): 4. laparoscopic extensive lyisis of adhesions Estimated blood loss: <10cc Specimen: appendix Findings: appendicitis, extensive intrabdominal adhesions, incarcerated omentum Anesthesia: General Complications: None Transferred to: Recovery Room Condition: Good
[2019-03-01] MEDS ORDERED: KETOROLAC 30 MG/ML INJ ONE (13:03)
[2019-03-01] MEDS ORDERED: Ringers Lactate 1,000 ML IV ONE (13:23)
[2019-03-01] MEDS: HYDROMORPHONE HCL 2 MG/ML inj ONE ×4 (13:32→13:49)
[2019-03-01] MEDS: HYDRALAZINE HCL 20 MG/ML VIAL ONE ×2 (14:00→14:18)
[2019-03-01] MEDS: HYDROMORPHONE HCL 1 MG/ML INJ ONE ×2 (14:09→14:15)
[2019-03-01] MEDS ORDERED: LABETALOL HCL 100 MG/20 ML ONE (14:40)
[2019-03-01] MEDS: HYDROCODONE/APAP 7.5/325 MG TAB PO PRN ×2 (16:45→20:09)
[2019-03-01] MEDS: NA CHLORIDE 0.9% 1,000 ML IV SCH ×2 (16:46→23:27)
[2019-03-01 17:42] VITALS: BMI 39.6
[2019-03-01] MEDS ORDERED: CEFOXITIN 1 GM in NA CHLORIDE 0.9% 100 ML IVPB SCH (18:00)
[2019-03-01] MEDS: CEFOXITIN/SWI 1gm 1 GM/10 ML SYR IVP SCH ×2 (18:40→23:27)
[2019-03-01 23:58] LABS: Urine Appearance CLEAR; Urine Bilirubin NEGATIVE (NEG); Urine Blood 2+ (NEG); Urine Color YELLOW; Urine Glucose 2+ (NEG); Urine Protein NEGATIVE (NEG); Urine Urobilinogen 0.2 mg/dL (0.2-1.0)
[2019-03-01 23:59] LABS: Urine Microscopic Reflex ORDER UMIC
[2019-03-02 00:08] LABS: Urine Culture Reflex Order REFLEXED
[2019-03-02 00:09] LABS: Urine Bacteria <20 /HPF (<20)
[2019-03-02 02:16] VITALS: O2SAT 95
[2019-03-02] MEDS: HYDROCODONE/APAP 7.5/325 MG TAB PO PRN ×3 (04:52→14:56)
[2019-03-02] MEDS: CEFOXITIN/SWI 1gm 1 GM/10 ML SYR IVP SCH (05:01)
--- NOTE | 2019-03-02 05:18 | OP ---
Date of Procedure: 03/01/2019 Surgeon: Delroy Espinosa MD Preoperative Diagnoses: Abdominal pain, incarcerated umbilical hernia. Postoperative Diagnoses: Abdominal pain, incarcerated umbilical hernia, appendicitis, and extensive intraabdominal adhesions. Procedures: 1.Diagnostic laparoscopy. 2.Laparoscopic appendectomy. 3.Open repair of incisional incarcerated umbilical hernia. 4.Laparoscopic extensive lysis of adhesions. Specimen: Appendix. Finding: Appendicitis, extensive intraabdominal adhesions in the lower abdomen, and incarcerated ome ntum and hernia. Anesthesia: General plus local. Indications: This is the case of a 43-year-old patient, who comes to us with intractable pain, mainl y in the lower abdomen, suprapubic, left lower quadrant, some right lower quadrant, but mostly in the left lower quadrant. The patient had surgery in the past with lysis of adhesions, that caused some relief and eventually this pain came back. She is having pain all the time plus the hernia pain. Sh alyse wants that repaired. She also wants diagnostic lap due to the pain that she has in the lower abdom en, unable to imaging or physical exam the etiology of that. She said the last time lysis of adhesions helped her and she wanted diagnostic labs. Since go to the umbilical hernia . Then, I also offered her the diagnostic lap and possible lysis of adhesions with benefits, alterna tives, and risks including but not limited to infection, bleeding, damage to adjacent structures, ane sthesia complication, negative exploration, recurrence of the hernia, SC, even . She also under stands this might not relieve any symptoms and she might need more than one surgical intervention. S he understood, signed a consent. Description Of Procedure: The patient was brought to the operating room, placed in supine position. Anesthesia was done without complication. Abdominal area was prepped and draped in a sterile fashio n. Marcaine 0.5% was injected for local anesthetic, followed by sharp incision of the skin in the in fraumbilical region. Incision was carried down to fascia, which was opened under direct vision. Per itoneum was encountered, opened under direct vision. Vicryl #1 placed on each side of the fascia. H asson trocar was carefully introduced. No bleeding was obtained. Immediately, we noticed an amount of adhesions on the lower abdomen. It is in entire suprapubic area left lower quadrant and some on t he right lower quadrant too. So, I had to put a 5 mm trocar in the left lower quadrant to help me to start to do this lysis of adhesions with the LigaSure and then slowly make some progress. We got to the point that I had to put another 5 mm trocar in the left lower quadrant and, when we got there an d we removed some adhesions, we noticed that what we have in the middle of the abdomen and almost to the left side at the tip of it. It was the appendix dragged into the midline and left lower quadrant . Obviously, the appendix is densely adhered to the adhesions that she has in the midline . It looks inflamed and trapped by all the scar tissues. So, I have to discuss and scrub out and go outside and discuss the case with the patient's . The appendix with adhesions and it is also in the area which is having tenderness so, even though I am going to remove the adhesions , I believe the appendix also should be removed. He gave me authorization. The benefits, alternativ es, and risks were fully explained to him which include but not limited to infection, bleeding, damag e to adjacent structures, anesthesia complication, bowel perforation, bowel leak, abscess, SC, even d eath. He understands this might not relieve any symptoms and she might need more than one surgical i ntervention, he understands the chance of negative appendix, he gave me the consent. So, I walked ba in the OR and basically went into to the right lower quadrant. Using the same trocars, we proceed ed to create a window in the base of the appendix. We did lysis of adhesions of the lower abdomen to make sure we have hemostasis which was done with LigaSure. Mesoappendix was also done with the help of the LigaSure and clips. We created a window in the base of the appendix, transected that with an Endo BERT 45 mm 3.5 and the mesoappendix with an Endo BERT 45 mm 2.5. Appendix was removed from the a bdominal cavity using an EndoCatch through the umbilical incision. We inspected the area of the lysi s of adhesions with significant amount of time is spent in that area. Probably more than half of the time of the surgery was done in lysis of adhesions,looks intact, with no enterotomies, and the bladd er with no damage to the bladder. At that moment, we removed the trocars under direct vision and we went to take a look at the area of the umbilical area. We have an umbilical hernia in that region, t hat was addressed when we entered initially. We extended our incision to the umbilical hernia to salud e 1 incision, reduced omentum present in that area; once again some adhesions present that were also removed. Trimmed the fascia edges and then we proceeded to close the fascia edges with #1 Vicryl and then subcutaneous tissue with 3-0 chromic and then skin with james. Sponge count and instrument c ounts were correct. The patient tolerated the procedure well. The patient was sent to recovery room in stable condition. We suspect this patient's pain and also ileus. I believe, this patient should be observed in the hospital with pain medication and also advance diet slowly. We are going to star t with n.p.o. to clear liquid diet and then by tomorrow we might advance the diet. Ambulation Incentive Spirometry And Pain Control: The patient's understood and also he did a gree. DEBRA/TOAN Voice ID: [id number] Report ID: [id number]
[2019-03-02] MEDS ORDERED: ATENOLOL 50 MG TAB PO SCH (06:00)
[2019-03-02 06:03] LABS: Absolute Lymphocytes (CBC) 1.2 K/uL (0.7-4.9); Absolute Monocytes 0.5 K/uL (0.1-1.3); Basophils % 0.3 % (0-1.3); Hematocrit 37.6 % (36.0-45.0); Lymphocytes % 12.6 % (15.3-44.8); MPV 7.8 fL (7.6-11.3); RBC Red Blood Cell Count 4.36 M/uL (3.86-4.86)
[2019-03-02 06:22] LABS: Potassium 4.7 mmol/L (3.5-5.1)
[2019-03-02] MEDS ORDERED: DULOXETINE 30 MG CAP PO SCH (09:00)
[2019-03-02] MEDS: NA CHLORIDE 0.9% 1,000 ML IV SCH (09:00)
[2019-03-02] MEDS ORDERED: PANTOPRAZOLE 40 MG INJ IVP SCH (09:00)
[2019-03-02] MEDS ORDERED: MONTELUKAST 10 MG TAB PO SCH (09:00)
[2019-03-02] MEDS ORDERED: ENALAPRIL 2.5 MG TAB PO SCH (09:00)
[2019-03-02 13:14] VITALS: BP 145/85; TEMP 97.2
== END 2019-03-02 15:03 | disposition home or self-care (01) ==
LOC: OR 09:11 → 2ND 13:04
PROVIDERS: ADMIT Surgery; ATTEND Surgery
PROC: 0WQF0ZZ Repair Abdominal Wall, Open Approach (ICD-10-PCS; 2019-03-01)
PROC: 0DNW4ZZ Release Peritoneum, Percutaneous Endoscopic Approach (ICD-10-PCS; 2019-03-01)
PROC: 0DTJ4ZZ Resection of Appendix, Percutaneous Endoscopic Approach (ICD-10-PCS; principal; 2019-03-01 09:45)
DX: K36 Other appendicitis (principal); K42.0 Umbilical hernia with obstruction, without gangrene; K66.0 Peritoneal adhesions (postprocedural) (postinfection); E11.9 Type 2 diabetes mellitus without complications; I10 Essential (primary) hypertension; Z79.899 Other long term (current) drug therapy
CPT/HCPCS: 36415; 71046; 80048; 81003; 81015; 82962; 85025; 87086; 87088; 88302; 88304; 93005; 97161; C9113; G0378; J0360; J0690; J1100; J1170; J2250; J2704; J3010; J7030

== ENCOUNTER 2022-05-20 05:50 | Day surgery (SDC) | payer BC ==
[2022-05-18 16:05] LABS: Absolute Lymphocytes (CBC) 2.4 K/uL (0.7-4.9); MCV 85.7 fL (80-100); MPV 6.9 fL (7.6-11.3); RBC Red Blood Cell Count 4.31 M/uL (3.86-4.86)
--- NOTE | 2022-05-18 16:05 | RAD REPORT ---
EXAM DESCRIPTION: Dennis Estes (2 Views)05/18/2022 3:58 pm CLINICAL HISTORY: Preop/hypertension COMPARISON: 2019 FINDINGS: The lungs appear clear of acute infiltrate. The heart is normal size IMPRESSION: No acute abnormalities displayed
[2022-05-18 16:29] LABS: SARS-CoV-2 Antigen Rapid Res Negative (Negative)
[2022-05-18 16:48] LABS: Albumin 3.5 g/dL (3.4-5.0); Bilirubin Direct 0.1 mg/dL (0-0.2); Bilirubin Total 0.4 mg/dL (0.2-1.0); Potassium 4.1 mmol/L (3.5-5.1); Protein, Total 6.9 g/dL (6.4-8.2)
--- NOTE | 2022-05-19 13:50 | EKG ---
Test Date: 2022-05-18 Test Time: 15:33:26 Kitchenhand: CHARLEE MEASUREMENT RESULTS: Intervals: Rate: 69 WA: 150 QRSD: 80 QT: 384 QTc: 411 [place]: P: 58 WA: 150 QRS: 27 T: 38 INTERPRETIVE STATEMENTS: Normal sinus rhythm Normal ECG Compared to ECG 02/18/2021 12:51:18 No significant changes Electronically Signed On 05-19-22 13:49:02 CDT by Donaldo Capps
[2022-05-20] MEDS ORDERED: CEFOXITIN SODIUM 1 GM/VIAL ONE (06:16)
[2022-05-20] MEDS ORDERED: NA CHLORIDE 0.9% 1,000 ML ONE (06:16)
[2022-05-20] MEDS ORDERED: propofoL 200 MG/20 ML VIAL IV ONE (07:33)
[2022-05-20] MEDS ORDERED: ROCURONIUM 50 MG/5 ML VIAL IV ONE (07:34)
[2022-05-20] MEDS ORDERED: FENTANYL CITR 100 MCG/2 ML ONE (07:34)
[2022-05-20] MEDS ORDERED: LIDOCAINE 2% MPF 5 ML VIAL ONE (07:34)
[2022-05-20] MEDS ORDERED: MIDAZOLAM HCL 2 MG/2 ML INJ ONE (07:35)
[2022-05-20] MEDS ORDERED: ONDANSETRON 4 MG/2 ML VIAL ONE (07:35)
[2022-05-20] MEDS ORDERED: dexAMETHasone 4 MG/ML VIAL ONE (07:57)
[2022-05-20] MEDS ORDERED: GLYCOPYRROLATE 0.2 MG/ML SYR ONE ×2 (08:29→08:36)
[2022-05-20] MEDS ORDERED: NEOSTIGMINE 1 MG/ML -10 ML VIAL ONE (08:30)
[2022-05-20] MEDS ORDERED: KETOROLAC 30 MG/ML INJ ONE (08:31)
--- NOTE | 2022-05-20 08:32 | P.BOP ---
Preoperative diagnosis: lower abd pain , LLQ abd pain Postoperative diagnosis: same plus intrabdominal adhesions Primary procedure: Diagnostic laparoscopy, Laparoscopic lysis of adhesions Clinical Science Consultant: KEYLA ROCHA (LEAD SYSTEMS DEVELOPER) Estimated blood loss: <10cc Specimen: none Findings: extensive lower abd and incisional adhesions Anesthesia: General Complications: None Transferred to: Recovery Room Condition: Good
[2022-05-20 08:41] VITALS: O2SAT 100
[2022-05-20] MEDS: HYDROMORPHONE HCL 1 MG/ML INJ ONE ×2 (08:46→08:52)
[2022-05-20] MEDS ORDERED: CODEINE 30MG/APAP 300MG TAB PO ONE (09:00)
[2022-05-20] MEDS ORDERED: HYDROMORPHONE HCL 1 MG/ML INJ ONE (09:11)
[2022-05-20] MEDS ORDERED: CODEINE 30MG/APAP 300MG TAB ONE (09:38)
[2022-05-20 09:42] VITALS: BP 103/61; TEMP 96.7
--- NOTE | 2022-05-20 12:04 | DS ---
Date of Discharge: 05/20/2022 Diagnoses: Lower abdominal pain, left lower quadrant abdominal pain, extensive intraabdominal adhesi ons. Procedure: Diagnostic laparoscopy, laparoscopic lysis of adhesions. Disposition: Home. Activity: As tolerated. No heavy lifting. Plan: Follow up in my office in 1 week. Call for appointment at [phone]. Keep area dry for 48 sukumar rs, then may shower. Keep Steri-Strips intact. DEBRA/TOAN Voice ID: [id number] Report ID: [id number]
--- NOTE | 2022-05-20 12:04 | OP ---
Date of Procedure: 05/20/2022 Surgeon: Delroy Espinosa MD Dock Supervisor: BRICE Mckeon. Preoperative Diagnoses: Lower abdominal pain, left lower quadrant abdominal pain, lower ventral abdo mandy pain. Postoperative Diagnoses: Lower abdominal pain, left lower quadrant abdominal pain, lower ventral abd ominal pain, extensive intraabdominal adhesions. Procedures: Diagnosis laparoscopy, laparoscopic lysis of adhesions. Specimen: None. Estimated Blood Loss: Less than 10 cc. Findings: Lower abdominal adhesions and incisional adhesions. The patient has Pfannenstiel incision in the past. Also, the patient had adhesions on the periumbilical region all the way down ventral a gianna. All those adhesions were removed today with the help of LigaSure. Indication: This is the case of a 47-year-old patient with lower abdominal pain. She has been on an d off having this pain. She is trying to do everything she can to avoid any surgery, but [place] [facility], she could not tolerate the pain. She has been going to pain management. She has been having mu ltiple GI procedures, multiple imaging and have been able to find exact etiology of her lower pain. We could not find out at least any hernias on physical exam. She has the option of diagnostic laparo scopy and she wants to use that option with benefits, alternatives, risks including, but not limited to infection, bleeding, damage to adjacent structures, anesthesia complication, unable to find the ri sks of her pain, HI, and even . She also understands this may not relieve any symptoms. She mi ght need more than one surgical intervention. She understood, signed a consent. Procedure In Detail: The patient was brought to the operating room, placed in supine position. Anes thesia was done without complication. Abdominal area was prepped and draped in the usual sterile fas hion. A time-out was called. Local anesthesia was applied followed by sharp incision of the skin in the periumbilical region. The incision was carried down to fascia, which was opened under direct vi isaura. Peritoneum was encountered, opened under direct vision. Vicryl #1 placed inside the fascia. Antoinette trocar was carefully introduced. Pneumoperitoneum was obtained. Immediately, we noticed the lower intraabdominal adhesions aiming for us to even put the 5 mm trocars. We have to not get oursel f between the adhesions until we find 2 clear spots on the left and right side of the abdomen and reba t allowed me to put 5 mm trocars under direct visualization. This allowed me to place LigaSure insid e of the abdomen and start to remove the adhesions in the lower abdomen. This took most of the time of the OR case. We have to clear the ventral region and also the left and the right lower quadrant, actually around the area of the Pfannenstiel incision. There are some bowel loops attempted by these adhesions that were carefully preserved with no enterotomies. Once we cleared that area, we continu ed with the diagnostic lap. We did not see any pelvic masses. We did not see any inguinal hernias n either. The gallbladder looks with no inflammation, liver with no masses seen at least extraluminal and ascending, transverse and descending colon with no extraluminal masses seen. At that moment, we checked the area once again of lysis of adhesions, no bleeding. At that moment, I proceeded to remov e the trocars under direct vision. Deflated the pneumoperitoneum. Closed the fascia with #1 Vicryl. Irrigated the subcutaneous tissue, closed that with 3-0 chromic and skin in a subcuticular fashion with 3-0 chromic and Steri-Strips on top. Sponge count, instrument counts correct. The patient nimo rated the procedure well. The patient was sent to recovery in stable condition. DEBRA/TOAN Voice ID: [id number] Report ID: [id number]
== END 2022-05-20 09:52 | disposition home or self-care (01) ==
LOC: OR 05:50
PROVIDERS: ATTEND Surgery
PROC: 0DNU4ZZ Release Omentum, Percutaneous Endoscopic Approach (ICD-10-PCS; 2022-05-20)
PROC: 0WJF4ZZ Inspection of Abdominal Wall, Percutaneous Endoscopic Approach (ICD-10-PCS; principal; 2022-05-20 07:30)
DX: R10.32 Left lower quadrant pain (principal); I10 Essential (primary) hypertension; E78.00 Pure hypercholesterolemia, unspecified; E11.9 Type 2 diabetes mellitus without complications; K57.92 Diverticulitis of intestine, part unspecified, without perforation or abscess without bleeding; K66.0 Peritoneal adhesions (postprocedural) (postinfection); Z20.822 Contact with and (suspected) exposure to COVID-19
CPT/HCPCS: 93005; 85025; 80048; 36415 ×2; 82150; 82947 ×2; 80076; 71046; 87811; 49320; 49329; J2704; J1100; J2710; J2250; J3010; J1170 ×2; J7030; J0694; J2405